=== PATIENT | female | born 1950 | race Caucasian/White ===

== ENCOUNTER 2018-10-26 12:02 | Emergency (ER) | payer MEDICARE, OTHER ==
[~2018-10-26] VITALS: Ht 154.9 cm; Wt 84.4 kg
[~2018-10-26 12:02] MED LIST: ALBU17AE3; ALPR1TAB21; AMLO1CAP5; ASPI-84; DULO60CA6; FENO145T2; GARL400T13; NF-ESOM40C; OMEG1CAP58; PARO40TA47; QVAR INHALER; SCR1T1; TIOT18CA; UBID30CA9
[2018-10-26] MEDS ORDERED: KETOROLAC 15 MG/ML VIAL IVP ONE (12:15)
[2018-10-26] MEDS ORDERED: NS 1000 ML IV BAG IV ONE ×2 (12:15→13:30)
[2018-10-26] MEDS ORDERED: RANI300T4 (12:19)
[2018-10-26] MEDS ORDERED: ATOR80TA76 (12:19)
[2018-10-26] MEDS ORDERED: LISI2.5T (12:19)
[2018-10-26] MEDS ORDERED: CITA40TA11 (12:19)
[2018-10-26] MEDS ORDERED: KETOROLAC 30 MG/ML VIAL ONE (12:24)
[2018-10-26 12:30] LABS: HEMATOCRIT 42 % (35-52); HEMOGLOBIN 14.1 G/DL (11.5-16.0); MEAN CORPUSCULAR HEMOGLOBIN 32 PG (25-34); MEAN CORPUSCULAR HGB CONC 34 G/DL (32-36); MEAN CORPUSCULAR VOLUME 94 FL (80-99); PLATELET COUNT 215 10^3/uL (130-400); RED CELL DISTRIBUTION WIDTH 12.6 % (10.0-14.5); WHITE BLOOD COUNT 5.9 10^3/uL (4.3-11.0)
[2018-10-26 12:31] LABS: BASOPHILS # (AUTO) 0.1 10^3/uL (0.0-0.1); BASOPHILS % (AUTO) 2 % (0-10); EOSINOPHILS # (AUTO) 0.3 10^3/uL (0.0-0.3); EOSINOPHILS % (AUTO) 5 % (0-10); LYMPHOCYTES # (AUTO) 2.6 X 10^3 (1.0-4.0); LYMPHOCYTES % (AUTO) 43 % (12-44); MONOCYTES # (AUTO) 0.3 X 10^3 (0.0-1.0); MONOCYTES % (AUTO) 5 % (0-12); NEUTROPHILS # (AUTO) 2.7 X 10^3 (1.8-7.8); NEUTROPHILS % (AUTO) 45 % (42-75)
[2018-10-26 12:54] LABS: CALCIUM 8.7 MG/DL (8.5-10.1); CREATININE SERUM 1.05 MG/DL (0.60-1.30)
[2018-10-26 12:55] LABS: BILIRUBIN,TOTAL 0.4 MG/DL (0.1-1.0); MAGNESIUM 2.4 MG/DL (1.8-2.4)
[2018-10-26 13:53] LABS: CLARITY,URINE CLEAR; COLOR,URINE YELLOW
[2018-10-26 13:54] LABS: BILIRUBIN,URINE NEGATIVE (NEGATIVE); GLUCOSE, URINE (UA) NEGATIVE (NEGATIVE); KETONES,URINE NEGATIVE (NEGATIVE); LEUKOCYTE ESTERASE ,URINE NEGATIVE (NEGATIVE); NITRITE,URINE NEGATIVE (NEGATIVE); PROTEIN,URINE NEGATIVE (NEGATIVE); UROBILINOGEN,URINE 0.2 MG/DL (NORMAL)
[2018-10-26 13:58] LABS: BACTERIA,URINE TRACE /HPF; SQUAMOUS EPITHELIAL CELL,UR 25-50 /HPF
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
[2018-10-26] MEDS ORDERED: HYDROcodone/APAP 5 MG/325 MG (LORTAB) TAB PO ONE (14:45)
[2018-10-26 14:49] VITALS: BP 156/75
== END 2018-10-26 14:55 | disposition home or self-care (01) ==
LOC: EDUNIT# 12:02 → ER FS 12:04
DX: M79.10 Myalgia, unspecified site (principal); E86.0 Dehydration; K58.9 Irritable bowel syndrome, unspecified; K21.9 Gastro-esophageal reflux disease without esophagitis; J45.909 Unspecified asthma, uncomplicated; Z88.1 Allergy status to other antibiotic agents; Z88.2 Allergy status to sulfonamides; Z88.0 Allergy status to penicillin; Z88.8 Allergy status to other drugs, medicaments and biological substances; Z91.040 Latex allergy status; Z98.890 Other specified postprocedural states
CPT/HCPCS: 36415; 80053; 81000; 83735; 85025; 86308; 99283

== ENCOUNTER 2019-10-20 19:56 | Emergency (ER) | payer MEDICARE, OTHER ==
[~2019-10-20] VITALS: Ht 157 cm; Wt 80.7 kg
[~2019-10-20 19:56] MED LIST changes: +ATOR80TA76; +CITA40TA11; +LISI2.5T; +RANI300T4
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
[2019-10-20] MEDS ORDERED: KETOROLAC 15 MG/ML VIAL IVP ONE (20:15)
[2019-10-20] MEDS ORDERED: HYDROcodone/APAP 5 MG/325 MG (LORTAB) TAB PO ONE (20:15)
[2019-10-20 20:42] LABS: HEMATOCRIT 39 % (35-52); HEMOGLOBIN 13.3 G/DL (11.5-16.0); MEAN CORPUSCULAR HEMOGLOBIN 33 PG (25-34); MEAN CORPUSCULAR HGB CONC 35 G/DL (32-36); MEAN CORPUSCULAR VOLUME 96 FL (80-99); WHITE BLOOD COUNT 7.4 10^3/uL (4.3-11.0)
[2019-10-20 20:43] LABS: BASOPHILS # (AUTO) 0.1 10^3/uL (0.0-0.1); BASOPHILS % (AUTO) 1 % (0-10); EOSINOPHILS # (AUTO) 0.2 10^3/uL (0.0-0.3); EOSINOPHILS % (AUTO) 3 % (0-10); LYMPHOCYTES # (AUTO) 2.9 X 10^3 (1.0-4.0); LYMPHOCYTES % (AUTO) 39 % (12-44); MEAN PLATELET VOLUME 9.3 FL (7.4-10.4); MONOCYTES # (AUTO) 0.4 X 10^3 (0.0-1.0); MONOCYTES % (AUTO) 5 % (0-12); NEUTROPHILS # (AUTO) 3.8 X 10^3 (1.8-7.8); NEUTROPHILS % (AUTO) 51 % (42-75); PLATELET COUNT 216 10^3/uL (130-400); RED CELL DISTRIBUTION WIDTH 12.5 % (10.0-14.5)
[2019-10-20 21:01] LABS: BILIRUBIN,TOTAL 0.2 MG/DL (0.1-1.0); CALCIUM 8.8 MG/DL (8.5-10.1); CREATININE SERUM 1.16 MG/DL (0.60-1.30); POTASSIUM 3.9 MMOL/L (3.6-5.0)
[2019-10-20 21:02] LABS: ALBUMIN 4.2 GM/DL (3.2-4.5)
[2019-10-20] MEDS ORDERED: NS IV 1000 ML 1,000 ML IV SCH (21:30)
[2019-10-20] MEDS ORDERED: HOLD METFORMIN - RECEIVED CONTRAST 20 ML VIAL IV SCH (21:30)
[2019-10-20] MEDS ORDERED: IOHEXOL 350 MG/ML 100 ML (OMNIPAQUE 350) VIAL IV ONE (21:30)
[2019-10-20] MEDS ORDERED: NS 100 ML (IVPB) BAG IV ONE (21:30)
[2019-10-20] MEDS ORDERED: CATHETER FLUSH 10 ML SYR IV PRN (21:30)
[2019-10-20] MEDS ORDERED: IBUP-1773 PO (23:00)
[2019-10-20] MEDS ORDERED: HYDR-4226 PO (23:00)
[2019-10-20 23:04] VITALS: BP 126/72
--- NOTE | 2019-10-21 09:22 | Diagnostic Imaging Report ---
EXAMINATION: CT Chest, Abdomen and Pelvis with intravenous contrast. TECHNIQUE: Multiple contiguous axial images were obtained through the chest, abdomen and pelvis after the uneventful administration of intravenous contrast. All CT scans use one or more of the following dose optimizing techniques: automated exposure control, MA and/or KvP adjustment based on a patient size and exam type, or iterative reconstruction. HISTORY: Trauma COMPARISON: None available. FINDINGS: There is no edema or pneumonia. No pleural effusion. No pneumothorax. No suspicious nodules. Heart size is normal. There are mild coronary artery calcifications. No pericardial effusion. Aorta is normal in caliber. There is no axillary or supraclavicular lymphadenopathy. There is no mediastinal lymphadenopathy. The liver is normal without focal lesion. There is no biliary ductal dilation. Gallbladder is normal. Pancreas is normal. Spleen is normal. There is an indeterminate 15 mm right adrenal nodule. The kidneys are normal. There is no hydronephrosis. Urinary bladder is normal. Visualized bowel is normal in caliber without obstruction or inflammation. No free fluid or air. No abdominal or pelvic lymphadenopathy. There is atherosclerosis of the abdominal aorta. There is mild narrowing of the distal aorta and proximal common iliac arteries. There are no suspicious osseus lesions. There is subtle irregularity of the left 5th and 6th ribs anteriorly. IMPRESSION: 1. Subtle irregularity of the cortex of the left 5th and 6th ribs anteriorly which may represent nondisplaced fractures. 2. Indeterminate 15 mm left adrenal nodule. This is probably benign and in the absence of a known history of cancer at 12 month follow-up adrenal protocol CT is recommended. If the patient does have a history of malignancy then the adrenal protocol CT should be performed now. 3. Mild narrowing of the distal aorta and common iliac arteries at the level of the bifurcation. Dictated by: Dictated on workstation # [id number]
--- OUTSIDE RECORDS SUMMARY | 2019-10-26 05:04 | XMS REPORT | Continuity of Care Document ---
Author Organization Unknown Address Unknown Phone Unavailable Allergies Active Description Code Type Severity Reaction Onset Reported/Identified Relationship to Patient Clinical Status Yes LATEX LATEX Unknown N/A 03/29/2009 Yes penicillin G [id number] Drug Allergy Unknown N/A 03/29/2009 Yes prednisone [id number] Drug Allerg y Unknown N/A 03/29/2009 Yes ciprofloxacin [id number] Miles g Allergy Unknown N/A 10/26/2018 Yes sulfamethoxazole [id number] Drug Allergy Unknown N/A 10/26/2018 Yes trimethoprim [id number] Drug Allergy Unknown N/A 10/26/2018 Medications There is no data. Problems Date Dx Coded Attending Type Code Diagnosis Diagnosed By 10/26/2018 COLLIN HERNÁNDEZ DO, Ot E86 .0 DEHYDRATION 10/26/2018 COLLIN HERNÁNDEZ DO Ot J45.909 UNSPECIFIED ASTHMA, UNCOMPLICATED 10/26/2018 COLLIN HERNÁNDEZ DO Ot K21 .9 GASTRO-ESOPHAGEAL REFLUX DISEASE WITHOUT 10/26/2018 COLLIN HERNÁNDEZ DO Ot K58 .9 IRRITABLE BOWEL SYNDROME WITHOUT DIARRHE 10/26/2018 COLLIN HERNÁNDEZ DO Ot M79.10 MYALGIA, UNSPECIFIED SITE 10/26/2018 COLLIN HERNÁNDEZ DO Ot Z88 .0 ALLERGY STATUS TO PENICILLIN 10/26/2018 COLLIN HERNÁNDEZ DO Ot Z88 .1 ALLERGY STATUS TO OTHER ANTIBIOTIC AGENT 10/26/2018 COLLIN HERNÁNDEZ DO Ot Z88 .2 ALLERGY STATUS TO SULFONAMIDES STATUS 10/26/2018 COLLIN HERNÁNDEZ DO Ot Z88 .8 ALLERGY STATUS TO OTH DRUG/MEDS/BIOL SUB 10/26/2018 COLLIN HERNÁNDEZ DO Ot Z91.040 LATEX ALLERGY STATUS 10/26/2018 COLLIN HERNÁNDEZ DO Ot Z98.890 OTHER SPECIFIED POSTPROCEDURAL STATES 10/29/2018 COLLIN HERNÁNDEZ DO Ot E86 .0 DEHYDRATION 10/29/2018 COLLIN HERNÁNDEZ DO Ot J45.909 UNSPECIFIED ASTHMA, UNCOMPLICATED 10/29/2018 COLLIN HERNÁNDEZ DO Ot K21 .9 GASTRO-ESOPHAGEAL REFLUX DISEASE WITHOUT 10/29/2018 COLLIN HERNÁNDEZ DO, Ot K58 .9 IRRITABLE BOWEL SYNDROME WITHOUT DIARRHE 10/29/2018 COLLIN HERNÁNDEZ DO Ot M79.10 MYALGIA, UNSPECIFIED SITE 10/29/2018 COLLIN HERNÁNDEZ DO Ot Z88 .0 ALLERGY STATUS TO PENICILLIN 10/29/2018 COLLIN HERNÁNDEZ DO, Ot Z88 .1 ALLERGY STATUS TO OTHER ANTIBIOTIC AGENT 10/29/2018 COLLIN HERNÁNDEZ DO, Ot Z88 .2 ALLERGY STATUS TO SULFONAMIDES STATUS 10/29/2018 COLLIN HERNÁNDEZ DO, Ot Z88 .8 ALLERGY STATUS TO OTH DRUG/MEDS/BIOL SUB 10/29/2018 COLLIN HERNÁNDEZ DO, Ot Z91.040 LATEX ALLERGY STATUS 10/29/2018 COLLIN HERNÁNDEZ DO, Ot Z98.890 OTHER SPECIFIED POSTPROCEDURAL STATES Procedures There is no data. Results Test Result Range Complete blood count (CBC) with automate d white blood cell (WBC) differential - 10/26/18 12:20 Blood leukocytes automated count (number/volume) 5.9 10*3/uL 4.3-11.0 Blood erythrocytes automated count (number/volume) 4.42 10*6/uL 4.35-5.85 Venous blood hemoglobin measurement (mass/volume) 14.1 g/dL 11.5-16.0 Blood hematocrit (volume fraction) 42 % 35-52 Automated erythrocyte mean corpuscular volume 94 [ foz_us] 80-99 Automated erythrocyte mean corpuscular h emoglobin (mass per erythrocyte) 32 pg 25-34 Automated erythrocyte mean corpuscular h emoglobin concentration measurement (mass/volume) 34 g/dL 32-36 Automated erythrocyte distribution width ratio 12. 6 % 10.0- 14.5 Automated blood platelet count (count/volume) 215 10*3/uL 130-400 Automated blood platelet mean volume measurement 10.0 [foz_us] 7.4-10.4 Automated blood neutrophils/100 leukocytes 45 % 42-75 Automated blood lymphocytes/100 leukocytes 43 % 12-44 Blood monocytes/100 leukocytes 5 % 0-12 Automated blood eosinophils/100 leukocytes 5 % 0-10 Automated blood basophils/100 leukocytes 2 % 0-10 Blood neutrophils automated count (number/volume) 2.7 10*3 1.8-7.8 Blood lymphocytes automated count (number/volume) 2.6 10*3 1.0-4.0 Blood monocytes automated count (number/volume) 0. 3 10*3 0.0-1.0 Automated eosinophil count 0.3 10*3/uL 0 .0-0.3 Automated blood basophil count (count/volume) 0.1 10*3/uL 0.0-0.1 Serum heterophile antibody titer - 10/26 12:20 Serum heterophile antibody titer NEGATIVE NEGATIVE Comprehensive metabolic panel - 10/26/18 12:20 Serum or plasma sodium measurement (moles/volume) 139 mmol/L 135-145 Serum or plasma potassium measurement (moles/volume) 4.0 mmol/L 3.6-5.0 Serum or plasma chloride measurement (moles/volume) 103 mmol/L 98-107 Carbon dioxide 24 mmol/L 21-32 Serum or plasma anion gap determination (moles/volume) 12 mmol/L 5-14 Serum or plasma urea nitrogen measurement (mass/volume ) 7 mg/dL 7-18 Serum or plasma creatinine measurement (mass/volume) 1.05 mg/dL 0.60-1.30 Serum or plasma urea nitrogen/creatinine mass ratio 7 NRG Serum or plasma creatinine measurement w ith calculation of estimated glomerular filtration rate 52 NRG Serum or plasma glucose measurement (mass/volume) 98 mg/dL 70-105 Serum or plasma calcium measurement (mass/volume) 8.7 mg/dL 8.5-10.1 Serum or plasma total bilirubin measurement (mass/volu me) 0.4 mg/dL 0.1-1.0 Serum or plasma alkaline phosphatase josh surement (enzymatic activity/volume) 83 U/L 40-136 Serum or plasma aspartate aminotransfera se measurement (enzymatic activity/volume) 19 U/L 5-34 Serum or plasma alanine aminotransferase measurement (enzymatic activity/volume) 12 U/L 0-55 Serum or plasma protein measurement (mass/volume) 8.0 g/dL 6.4-8.2 Serum or plasma albumin measurement (mass/volume) 4.0 g/dL 3.2-4.5 CALCIUM CORRECTED 8.7 mg/dL 8.5-10.1 Magnesium - 10/26/18 12:20 Magnesium 2.4 mg/dL 1.8-2.4 Complete urinalysis with reflex to cultu re - 10/26/18 13:40 Urine color determination YELLOW NRG Urine clarity determination CLEAR NR G Urine pH measurement by test strip 6.0 5-9 Specific gravity of urine by test strip <= 1.016-1.022 Urine protein assay by test strip, semi-quantitative NEGATIVE NEGATIVE Urine glucose detection by automated test strip NE GATIVE NEGATIVE Erythrocytes detection in urine sediment by light micr oscopy NEGATIVE NEGATIVE Urine ketones detection by automated test strip NE GATIVE NEGATIVE Urine nitrite detection by test strip NEGATIVE NEGATIVE Urine total bilirubin detection by test strip NEGA TIVE NEGATIVE Urine urobilinogen measurement by automated test strip (mass/volume) 0.2 mg/dL NORMAL Urine leukocyte esterase detection by dipstick NEG ATIVE NEGATIVE Automated urine sediment erythrocyte cou nt by microscopy (number/high power field) NONE NRG Automated urine sediment leukocyte count by microscopy (number/high power field) [HPF] NRG Bacteria detection in urine sediment by light microsco py TRACE NRG Squamous epithelial cells detection in u rine sediment by light microscopy 25-50 NRG Crystals detection in urine sediment by light microsco py NONE NRG Casts detection in urine sediment by light microscopy NONE NRG Mucus detection in urine sediment by light microscopy NEGATIVE NRG Complete urinalysis with reflex to culture NO NRG Complete blood count (CBC) with automate d white blood cell (WBC) differential - 10/20/19 20:25 Blood leukocytes automated count (number/volume) 7.4 10*3/uL 4.3-11.0 Blood erythrocytes automated count (number/volume) 4.03 10*6/uL 4.35-5.85 Venous blood hemoglobin measurement (mass/volume) 13.3 g/dL 11.5-16.0 Blood hematocrit (volume fraction) 39 % 35-52 Automated erythrocyte mean corpuscular volume 96 [ foz_us] 80-99 Automated erythrocyte mean corpuscular h emoglobin (mass per erythrocyte) 33 pg 25-34 Automated erythrocyte mean corpuscular h emoglobin concentration measurement (mass/volume) 35 g/dL 32-36 Automated erythrocyte distribution width ratio 12. 5 % 10.0- 14.5 Automated blood platelet count (count/volume) 216 10*3/uL 130-400 Automated blood platelet mean volume measurement 9.3 [foz_us] 7.4-10.4 Automated blood neutrophils/100 leukocytes 51 % 42-75 Automated blood lymphocytes/100 leukocytes 39 % 12-44 Blood monocytes/100 leukocytes 5 % 0-12 Automated blood eosinophils/100 leukocytes 3 % 0-10 Automated blood basophils/100 leukocytes 1 % 0-10 Blood neutrophils automated count (number/volume) 3.8 10*3 1.8-7.8 Blood lymphocytes automated count (number/volume) 2.9 10*3 1.0-4.0 Blood monocytes automated count (number/volume) 0. 4 10*3 0.0-1.0 Automated eosinophil count 0.2 10*3/uL 0 .0-0.3 Automated blood basophil count (count/volume) 0.1 10*3/uL 0.0-0.1 Comprehensive metabolic panel - 10/20/19 20:25 Serum or plasma sodium measurement (moles/volume) 134 mmol/L 135-145 Serum or plasma potassium measurement (moles/volume) 3.9 mmol/L 3.6-5.0 Serum or plasma chloride measurement (moles/volume) 99 mmol/L 98-107 Carbon dioxide 24 mmol/L 21-32 Serum or plasma anion gap determination (moles/volume) 11 mmol/L 5-14 Serum or plasma urea nitrogen measurement (mass/volume ) 10 mg/dL 7-18 Serum or plasma creatinine measurement (mass/volume) 1.16 mg/dL 0.60-1.30 Serum or plasma urea nitrogen/creatinine mass ratio 9 NRG Serum or plasma creatinine measurement w ith calculation of estimated glomerular filtration rate 47 NRG Serum or plasma glucose measurement (mass/volume) 153 mg/dL 70-105 Serum or plasma calcium measurement (mass/volume) 8.8 mg/dL 8.5-10.1 Serum or plasma total bilirubin measurement (mass/volu me) 0.2 mg/dL 0.1-1.0 Serum or plasma alkaline phosphatase josh surement (enzymatic activity/volume) 95 U/L 40-136 Serum or plasma aspartate aminotransfera se measurement (enzymatic activity/volume) 20 U/L 5-34 Serum or plasma alanine aminotransferase measurement (enzymatic activity/volume) 13 U/L 0-55 Serum or plasma protein measurement (mass/volume) 8.0 g/dL 6.4-8.2 Serum or plasma albumin measurement (mass/volume) 4.2 g/dL 3.2-4.5 CALCIUM CORRECTED 8.6 mg/dL 8.5-10.1 Encounters ACCT No. Visit Date/Time Discharge Status Pt. Type Provider Facility Loc./Unit Complaint [id number] 06/02/2019 07:10:00 06/02/2019 23:59: 59 CLS [facility] [id number] 10/20/2019 19:57:00 020 23:04:00 DIS Emergency COLLIN HERNÁNDEZ DO [facility] ER FS RIB PAIN [id number] 10/26/2018 12:04:00 019 14:55:00 DIS Emergency COLLIN HERNÁNDEZ DO [facility] ER FS BODY ACHES - PT THINKS SHE IS DEHYDRATED
== END 2019-10-20 23:04 | disposition home or self-care (01) ==
LOC: EDUNIT# 19:56 → ER FS 19:57
DX: R07.81 Pleurodynia (principal); Z88.1 Allergy status to other antibiotic agents; Z88.0 Allergy status to penicillin; Z88.2 Allergy status to sulfonamides; Z88.8 Allergy status to other drugs, medicaments and biological substances; Z91.040 Latex allergy status; X50.1XXA Overexertion from prolonged static or awkward postures, initial encounter
CPT/HCPCS: 36415; 71260; 74177; 80053; 85025

== ENCOUNTER → 2020-11-14 | Outpatient (CLI) | payer MEDICARE, OTHER ==
[~2020-11-14] MED LIST changes: +HYDR-4226 PO; +IBUP-1773 PO
--- NOTE | 2020-11-14 13:31 | Diagnostic Imaging Report ---
EXAMINATION: Cervical spine at 11:56 a.m. INDICATION: Neck pain and headaches. Four views were obtained. There are no prior studies available for comparison. The lateral view shows slight straightening of the cervical spine. This may be secondary to muscle spasm and/or positioning. There is degenerative disc and bony disease at C5-C6 and C6-C7. The other intervertebral disc spaces are fairly well-maintained. There is no fracture or acute bony abnormality appreciated. There is no sign of retropharyngeal edema. The lung apices are generally clear. IMPRESSION: 1. There is no evidence for an acute bony abnormality. 2. There is degenerative disc and bony disease at C5-C6 and C6-C7. 3. If there is clinical concern regarding spinal stenosis or nerve root encroachment, then MRI would be recommended for further study. Dictated by: Dictated on workstation # [id number]
== END ==
LOC: RAD FS 11:53
PROVIDERS: ATTEND Emergency Medicine
DX: M50.322 Other cervical disc degeneration at C5-C6 level (principal); M47.812 Spondylosis without myelopathy or radiculopathy, cervical region; G44.201 Tension-type headache, unspecified, intractable
CPT/HCPCS: 72040

== ENCOUNTER 2022-10-24 06:32 | Outpatient (CLI) | payer MEDICARE, OTHER ==
[~2022-10-24] VITALS: Ht 157.5 cm; Wt 85.5 kg
[~2022-10-24 06:32] MED LIST changes: -CITA40TA11; +CITA40TA13; -LISI2.5T; +LISI2.5T13
[2022-10-24] MEDS ORDERED: DULO20CA19 PO (12:13)
[2022-10-24] MEDS ORDERED: VIT1CAPS44 PO (12:13)
[2022-10-24] MEDS ORDERED: PREVAGEN PO (12:13)
[2022-10-24] MEDS ORDERED: MONT-40 PO (12:13)
[2022-10-24] MEDS ORDERED: LISI5TAB20 PO (12:13)
[2022-10-24] MEDS ORDERED: TRM50T PO (12:13)
[2022-10-24] MEDS ORDERED: CETI10TA17 PO (12:13)
[2022-10-24] MEDS ORDERED: EZET10TA49 PO (12:13)
[2022-10-24] MEDS ORDERED: CELE-63 PO (12:13)
[2022-10-24] MEDS ORDERED: ALPR1TAB7 PO (12:13)
[2022-10-24] MEDS ORDERED: MEMA5TAB43 PO (12:13)
[2022-10-24] MEDS ORDERED: BUPR-168 PO (12:13)
[2022-10-24] MEDS ORDERED: CYCL10TA25 PO (12:13)
== END 2022-10-26 09:10 | disposition home or self-care (01) ==
LOC: PREOP 06:32
PROVIDERS: ATTEND Surgery
DX: Z01.818 Encounter for other preprocedural examination (principal); Z12.11 Encounter for screening for malignant neoplasm of colon; D17.79 Benign lipomatous neoplasm of other sites

== ENCOUNTER 2022-10-25 05:36 | Outpatient (CLI) | payer MEDICARE, OTHER ==
[~2022-10-25 05:36] MED LIST changes: +ALPR1TAB7 PO; +BUPR-168 PO; +CELE-63 PO; +CETI10TA17 PO; +CYCL10TA25 PO; +DULO20CA19 PO; +EZET10TA49 PO; +LISI5TAB20 PO; +MEMA5TAB43 PO; +MONT-40 PO; +PREVAGEN PO; +TRM50T PO; +VIT1CAPS44 PO
== END 2022-10-25 08:37 | disposition home or self-care (01) ==
LOC: PREOP 05:36
PROVIDERS: ATTEND Surgery
DX: Z01.818 Encounter for other preprocedural examination (principal)

== ENCOUNTER 2022-11-01 11:28 | Day surgery (SDC) | payer MEDICARE, OTHER ==
[2022-11-01] VITALS (12 sets, daily range): BP systolic 103–136; BP diastolic 39–89
[~2022-11-01] VITALS: Ht 157.5 cm; Wt 85.5 kg
[2022-11-01] MEDS ORDERED: BUP/EPI 0.5% 1:200,000 (SENSORCAINE) 30 ML VIAL ONE (12:12)
[2022-11-01] MEDS ORDERED: CLINDAMYCIN 600 MG/50 ML IVPB 50 ML IV ONE ×2 (12:19→12:30)
[2022-11-01] MEDS ORDERED: LACTATED RINGERS 1,000 ML IV PRN (12:30)
[2022-11-01] MEDS ORDERED: proPOfol 200 MG/20 ML (DIPRIVAN) VIAL IV ONE (12:54)
[2022-11-01] MEDS ORDERED: ONDANSETRON 4 MG/2 ML (SDV) Z0FRAN ONE (12:54)
[2022-11-01] MEDS ORDERED: fentaNYL INJ 100 MCG/2 ML AMP ONE (12:54)
[2022-11-01] MEDS ORDERED: LIDOCAINE PF 2% 5 ML (XYLOCAINE) VIAL ONE (12:54)
[2022-11-01] MEDS ORDERED: SEVOFLURANE (ULTANE) 15 ML INHAL SOLN ONE (14:18)
[2022-11-01] MEDS ORDERED: PHENYLEPHRINE 100 MCG/ML 10 ML (ANESTHESIA) SYR ONE (14:21)
--- NOTE | 2022-11-01 14:29 | Progress Note-Pre Operative ---
Pre-Operative Progress Note Date of Available H&P: Nov 01, 2022 Date H&P Reviewed: Nov 01, 2022 Time H&P Reviewed: 12:00 History & Physical: No changes noted Pre-Operative Diagnosis: sx left flank lipoma x3, screening o SHARON AVERY MD Nov 01, 2022 14:29
[2022-11-01] MEDS ORDERED: morphine INJ 10 MG/ML 1ML (SYR OR VIAL) IVP ONE (14:30)
[2022-11-01] MEDS ORDERED: ONDANSETRON 4 MG/2 ML (SDV) Z0FRAN IVP PRN ×2 (14:30→14:45)
--- NOTE | 2022-11-01 14:33 | Progress Note-Post Operative ---
Post-Operative Progess Note Surgeon (s)/Coil Tester (s) Surgeon SHARON AVERY MD Coil Tester: none Pre-Operative Diagnosis sx left flank lipoma x3, screening colo Post-Operative Diagnosis same, chronic stage 2 ext and int hemorrhoids, mild sigmoid diverticulosis. Procedure & Operative Findings Date of Procedure 11/01/22 Procedure Performed/Findings excision sc left flank lipoma x3(1.5cm), chronic stage 2 ext and int hemorrhoids, mild sigmoid diverticulosis. Anesthesia Type general LMA Estimated Blood Loss Estimated blood loss (mL): minimal Specimens/Packing Specimens Removed left flank lipoma x3 SHARON AVERY MD Nov 01, 2022 14:33
[2022-11-01] MEDS ORDERED: BUP/EPI 0.5% 1:200,000 (SENSORCAINE) 30 ML VIAL INJ ONE (14:34)
[2022-11-01] MEDS ORDERED: HYDR-3817 PO (14:37)
--- NOTE | 2022-11-01 14:37 | Discharge Inst-Surgical ---
D/C Lap Instructions-BENNIE New, Converted, or Re-Newed RX: RX on Chart Follow Up Appt in 2 weeks Activity as tolerated No driving for 24 hours No [address] while on pain medications Incentive Spirometry use every 2 hours while awake Regular Diet Symptoms to Report: Fever over 101 degree F, Nausea/Vomiting Infection Signs and Symptoms to report: Increased redness, Foul odor of wound, Increased drainage Bathing instructions: May shower Operative Area Clean/Dry; Keep incision clean/dry If any problems/questions: Contact your physician or go to Emergency Room SHARON AVERY MD Nov 01, 2022 14:37
[2022-11-01] MEDS ORDERED: oxyCODONE/APAP 5/325MG (PERCOCET 5) TABLET PO PRN (14:45)
[2022-11-01] MEDS ORDERED: morphine INJ 10 MG/ML 1ML (SYR OR VIAL) IVP PRN ×2 (14:45)
[2022-11-01] MEDS ORDERED: ACETAMINOPHEN 325 MG TABLET PO PRN (14:45)
--- NOTE | 2022-11-01 14:50 | Anesthesia-General Post-Op ---
General Patient Condition Mental Status/LOC: Same as Preop Cardiovascular: Satisfactory Nausea/Vomiting: Absent Respiratory: Satisfactory Pain: Controlled Complications: Absent Post Op Complications Complications None Follow Up Care/Instructions Patient Instructions None needed. Anesthesia/Patient Condition Patient Condition Patient is doing well in PACU with no complaints, stable vital signs, no apparent adverse anesthesia problems. No complications reported per nursing. ADAM RINCON 16, 2023 14:50
--- NOTE | 2022-11-01 15:02 | OPERATIVE REPORT ---
DATE OF SERVICE: 11/01/2022 ATTENDING PRIMARY CARE PHYSICIAN: Dr. Stephen Wharton. PREOPERATIVE DIAGNOSES: Symptomatic left flank lipoma x3, screening colonoscopy with family history of colon cancer. POSTOPERATIVE DIAGNOSES: Left flank lipoma x3, each approximately 1.5 cm in size. Chronic stage II, external and internal hemorrhoids, mild sigmoid diverticulosis. PROCEDURE: Excision of left flank lipoma x3, each 1.5 cm in size. Colonoscopy. SURGEON: Dr. Sharon Avery. ANESTHESIA: Monitored anesthesia care. ESTIMATED BLOOD LOSS: Minimal. FINDINGS: Left flank lipoma x3, each approximately 1.5 cm in size. Chronic stage II, external and internal hemorrhoids, mild sigmoid diverticulosis. DISPOSITION: The patient tolerated the procedure well. INDICATIONS: The patient is a 72-year-old female referred over to us for screening colonoscopy. She has a family history of colon cancer with her father having the disease in his 70s. She has been getting screening colonoscopies approximately every 5 years. She also reports that she has felt a knot in the left posterior flank over the past year and states that these have become much more uncomfortable and painful, especially upon palpation and certain body positions. Upon examination, she was found to have three subcutaneous nodules, which appeared to be benign lipomas of the left flank. DESCRIPTION OF PROCEDURE: The patient was brought to the operating room, laid supine on the table. After adequate IV pain and sedative medications and general laryngeal mask airway intubation, the patient's left side of the body was propped up with gel pads. The left flank was then prepped and draped in standard surgical fashion. The overlying skin of each lesion was then anesthetized using 0.5% Marcaine with epinephrine. Small skin incisions were then made using a #15 blade. What was identified it was organized adipose tissue growth consistent with a benign lipoma, which were completely excised using blunt dissection as well as electrocautery with visualization of good hemostasis. The lesion size was approximately 1.5 cm in size. The other 2 lesions were excised in a similar manner. Good hemostasis was observed and the skin was closed using 4-0 Monocryl subcuticular sutures. Wounds were then cleaned and covered with Dermabond. The patient was then placed supine and the legs placed in a frogleg position and a digital rectal examination was performed which revealed chronic stage II, external and internal hemorrhoids, not actively edematous nor inflamed and no bleeding. Normal sphincter tone was felt and there were no palpable masses. The endoscope was then intubated into the anus, rectum gently insufflated. The endoscope was then advanced through the valves of Dietrich of the rectum with no polyps or any neoplasms identified. Through the sigmoid colon, a mild sigmoid diverticulosis identified. The endoscope was then advanced to the remainder of the descending, transverse and ascending colon to the cecum, which were normal. There were no polyps or any neoplasms identified. The endoscope was then slowly withdrawn while taking a second look and suctioning of residual air with no additional findings. The patient tolerated the procedure well. We will recommend continued medical management with a high-fiber diet with at least 25 grams of fiber daily as well as significant amounts of water to promote soft stools on a daily basis. Due to her first-degree family history of colon cancer, we will recommend a followup colonoscopy in approximately 5 years. For the lipomas, we will confirm this by sending them to pathology and to continue to monitor her body for any reoccurring lesions or the development of any new ones. Job ID: [id number] DocumentID: [id number] Dictated Date: 11/01/2022 14:27:02 Ball Warper Tender Date: 11/01/2022 15:00:00 Dictated By: SHARON AVERY MD
== END 2022-11-01 16:40 ==
LOC: SDC 11:28
PROVIDERS: ATTEND Surgery
DX: Z12.11 Encounter for screening for malignant neoplasm of colon (principal); D17.1 Benign lipomatous neoplasm of skin and subcutaneous tissue of trunk; K57.30 Diverticulosis of large intestine without perforation or abscess without bleeding; K64.4 Residual hemorrhoidal skin tags; K64.1 Second degree hemorrhoids; F17.210 Nicotine dependence, cigarettes, uncomplicated; E66.9 Obesity, unspecified; Z68.34 Body mass index [BMI] 34.0-34.9, adult; Z80.0 Family history of malignant neoplasm of digestive organs
CPT/HCPCS: 21930; G0105; 87081; 88304